=== PATIENT | female | born 1985 | race Caucasian/White ===

== ENCOUNTER → 2018-07-01 | Outpatient (CLI) | payer OTHER ==
--- NOTE | 2018-07-01 13:58 | RAD ---
Limited abdominal ultrasound 07/01/2018 INDICATION: Right upper quadrant pain. COMPARISON STUDY: None Discussion: Ultrasound evaluation of the right upper quadrant was performed. Static images are sent to PACS. Visualized portions of the pancreas are unremarkable. Visualized portions of the gallbladder unremarkable without evidence of wall thickening, stones, or sludge. No pericholecystic fluid is identified. The common bile duct is nondilated measuring between 1 and 2 mm in diameter. The liver is grossly normal in echotexture. No focal hepatic lesions are seen. Portal venous flow appears to be in the normal direction. Liver is mildly enlarged measuring 19 cm longitudinally. The right kidney is unremarkable in appearance measuring 10.6 cm in length. Visualized aorta and IVC are unremarkable. IMPRESSION: 1. Mild hepatomegaly, nonspecific. 2. Otherwise unremarkable sonographic appearance of the right upper quadrant. Electronically signed by: Kody Martinez MD (07/01/2018 12:59 PM) [id number]
== END | disposition home or self-care (01) ==
LOC: US 08:28
PROVIDERS: ATTEND Nurse Practitioner Family
DX: R16.0 Hepatomegaly, not elsewhere classified (principal)
CPT/HCPCS: 76705